=== PATIENT | female | born 1980 | race Caucasian/White ===

== ENCOUNTER 2018-06-15 11:07 | Emergency (ER) | payer BC ==
[~2018-06-15 11:07] MED LIST: ALBU8.5H12 IH; AZIT-1 PO; CODE118S5 PO
[2018-06-15] MEDS ORDERED: HYDR-2966 PO (11:22)
[2018-06-15] MEDS ORDERED: BUS5 PO (11:22)
[2018-06-15] MEDS ORDERED: CETI10CA8 PO (11:22)
--- NOTE | 2018-06-15 11:25 | ER Report ---
History and Physical Time Seen By MD: 11:22 Hx. of Stated Complaint: PATIENT STATES WHEEZING AND COUGHING FOR 3-4 DAYS. RUNNY NOSE. STATES LOW GRADE FEVER AROUND 99.4. WAS AT URGENT CARE THIS MORNING. THEY DID CXR AND FLU SWAB BUT COULD NOT GET A VEIN AND SENTG HER HERE. HPI/ROS CHIEF COMPLAINT: Cough and shortness of breath HISTORY OF PRESENT ILLNESS: This is a 37-year-old female presents to the emergency department for cough and shortness of breath. Patient states that over the last 2 weeks she's had a lingering cough, within the last week symptoms are worsening, within the last 3 days she's had aches and chills, somewhat productive cough, went to urgent care today and had a chest x-ray and negative influenza test. Negative chest x-ray. Placenta the ER for PE studies, they were unable to start an IV and draw blood. She also received 1 nebulizer treatment which did seem to provide some relief of her symptoms. She was also noted to be mid 70s on room air. Denies chest pain, no headaches, no rashes, no nausea, vomiting or diarrhea. REVIEW OF SYSTEMS: Constitutional: As above. Eyes: No discharge. ENT: No sore throat. Cardiovascular: No chest pain, no palpitations. Respiratory: As above. Gastrointestinal: No abdominal pain, no vomiting. Genitourinary: No hematuria. Musculoskeletal: No back pain. Skin: No rashes. Neurological: No headache. Allergies: Coded Allergies: No Known Drug Allergies (Unverified , 06/15/18) Home Meds Active Scripts Rivaroxaban 20 Mg (XARELTO 20 MG) 20 Mg Tablet, 20 MG PO BID for 21 Days, #42 TAB 0 Refills Prov:JIM HERNANDEZ MINE TECHNICIAN- 06/15/18 Reported Medications Cetirizine Hcl (ZYRTEC) 10 Mg Capsule, 10 MG PO QDAY, CAPSULE 06/15/18 Buspirone Hcl (BUSPIRONE HCL) 5 Mg Tab, 5 MG PO BID, #10 TAB 06/15/18 Hydrochlorothiazide (HYDROCHLOROTHIAZIDE) 25 Mg Tablet, 1 TAB PO QDAY, TAB 06/15/18 Past Medical/Surgical History The patient has a past medical and surgical history of borderline diabetic, depression, large body habitus. Reviewed Nurses Notes: Yes Hx Smoking: No Hx Substance Use Disorder: No Constitutional Vital Sign - Last 24 Hours 06/15/18 06/15/18 06/15/18 06/15/18 11:13 11:27 11:30 11:51 Temp 99.1 Pulse 105 94 Resp 22 B/P (MAP) 153/85 132/69 (90) Pulse Ox 92 94 O2 Delivery Nasal Cannula O2 Flow Rate 2.0 06/15/18 06/15/18 06/15/18 06/15/18 11:52 11:52 11:58 12:00 Pulse 93 100 97 Resp 16 16 14 Pulse Ox 95 100 O2 Delivery Nasal Cannula O2 Flow Rate 2.0 06/15/18 06/15/18 06/15/18 12:30 13:00 13:54 Pulse 97 96 80 Resp 11 12 24 B/P (MAP) 105/54 (71) 115/69 (84) Pulse Ox 96 96 85 O2 Delivery Room Air Physical Exam General Appearance: The patient is alert, has no immediate need for airway protection and no signs of toxicity. Eyes: Pupils equal and round no pallor or injection. ENT, Mouth: Mucous membranes are moist. Respiratory: There are no retractions, lungs are clear to auscultation. Cardiovascular: Regular rate and rhythm, no murmurs, clicks or rubs. Gastrointestinal: Abdomen is very round, soft and non tender, no masses, bowel sounds normal. Neurological: Alert and oriented 4. Moving all extremities. Following all commands. No focal neuro deficits. Skin: Warm and dry, no rashes. Musculoskeletal: Neck is supple non tender. Extremities are nontender, nonswollen and have full range of motion. DIFFERENTIAL DIAGNOSIS: After history and physical exam differential diagnosis was considered for shortness of breath including but not limited to pulmonary infectious process, COPD, asthma, pulmonary embolus and congestive heart failure. Medical Decision Making Data Points Result Diagram: 06/15/18 1119 06/15/18 1119 Laboratory Hematology Test 06/15/18 11:19 Red Blood Count 5.23 M/uL (4.17-5.56) Mean Corpuscular Volume 90.1 fL (80.0-96.0) Mean Corpuscular Hemoglobin 29.3 pg (26.0-33.0) Mean Corpuscular Hemoglobin Concent 32.5 g/dL (32.0-36.0) Red Cell Distribution Width 14.3 % (11.5-14.5) Mean Platelet Volume 7.6 fL (7.2-11.1) Neutrophils (%) (Auto) 37.3 % (39.4-72.5) Lymphocytes (%) (Auto) 41.0 % (17.6-49.6) Monocytes (%) (Auto) 20.5 % (4.1-12.4) Eosinophils (%) (Auto) 0.5 % (0.4-6.7) Basophils (%) (Auto) 0.7 % (0.3-1.4) Nucleated RBC Relative Count (auto) 0.0 /100WBC Neutrophils # (Auto) 1.9 K/uL (2.0-7.4) Lymphocytes # (Auto) 2.0 K/uL (1.3-3.6) Monocytes # (Auto) 1.0 K/uL (0.3-1.0) Eosinophils # (Auto) 0.0 K/uL (0.0-0.5) Basophils # (Auto) 0.0 K/uL (0.0-0.1) Nucleated RBC Absolute Count (auto) 0.00 K/uL Peripheral Blood Smear Yes Y/N D-Dimer Quantitative (PE/DVT) 2.99 ug/ml (0-0.50) Sodium Level 140 mmol/L (137-145) Potassium Level 3.6 mmol/L (3.5-5.0) Chloride Level 104 mmol/L (98-107) Carbon Dioxide Level 28 mmol/L (22-31) Blood Urea Nitrogen 11 mg/dl (7-18) Creatinine 0.80 mg/dl (0.52-1.04) Glomerular Filtration Rate Calc > 60.0 Random Glucose 126 mg/dl (75-110) Calcium Level 8.1 mg/dl (8.4-10.2) Total Bilirubin 0.4 mg/dl (0.2-1.3) Aspartate Amino Transf (AST/SGOT) 26 U/L (0-35) Alanine Aminotransferase (ALT/SGPT) 27 U/L (0-56) Alkaline Phosphatase 43 U/L (0-126) Total Protein 7.3 g/dl (6.3-8.2) Albumin 3.9 g/dl (3.5-5.0) Chemistry Test 06/15/18 11:19 White Blood Count 5.0 k/uL (4.5-11.0) Red Blood Count 5.23 M/uL (4.17-5.56) Hemoglobin 15.3 g/dL (12.0-16.0) Hematocrit 47.1 % (34.0-47.0) Mean Corpuscular Volume 90.1 fL (80.0-96.0) Mean Corpuscular Hemoglobin 29.3 pg (26.0-33.0) Mean Corpuscular Hemoglobin Concent 32.5 g/dL (32.0-36.0) Red Cell Distribution Width 14.3 % (11.5-14.5) Platelet Count 154 K/uL (150-450) Mean Platelet Volume 7.6 fL (7.2-11.1) Neutrophils (%) (Auto) 37.3 % (39.4-72.5) Lymphocytes (%) (Auto) 41.0 % (17.6-49.6) Monocytes (%) (Auto) 20.5 % (4.1-12.4) Eosinophils (%) (Auto) 0.5 % (0.4-6.7) Basophils (%) (Auto) 0.7 % (0.3-1.4) Nucleated RBC Relative Count (auto) 0.0 /100WBC Neutrophils # (Auto) 1.9 K/uL (2.0-7.4) Lymphocytes # (Auto) 2.0 K/uL (1.3-3.6) Monocytes # (Auto) 1.0 K/uL (0.3-1.0) Eosinophils # (Auto) 0.0 K/uL (0.0-0.5) Basophils # (Auto) 0.0 K/uL (0.0-0.1) Nucleated RBC Absolute Count (auto) 0.00 K/uL Peripheral Blood Smear Yes Y/N D-Dimer Quantitative (PE/DVT) 2.99 ug/ml (0-0.50) Glomerular Filtration Rate Calc > 60.0 Calcium Level 8.1 mg/dl (8.4-10.2) Total Bilirubin 0.4 mg/dl (0.2-1.3) Aspartate Amino Transf (AST/SGOT) 26 U/L (0-35) Alanine Aminotransferase (ALT/SGPT) 27 U/L (0-56) Alkaline Phosphatase 43 U/L (0-126) Total Protein 7.3 g/dl (6.3-8.2) Albumin 3.9 g/dl (3.5-5.0) Coagulation Test 06/15/18 11:19 D-Dimer Quantitative (PE/DVT) 2.99 ug/ml EKG/Imaging Imaging Location: [facility] [place] Patient: Faith Winter : 1980 Visit/Account:[id number] Date of Sevice: 06/15/2018 EXAMINATION: CTA of the chest with IV contrast HISTORY: Cough. Elevated d-dimer. TECHNIQUE: Pulmonary embolus protocol - Thin axial CT images of the chest were obtained with IV contrast during maximal pulmonary arterial opacification. Reconstruction of the source data includes multiplanar 2D coronal and sagittal reconstructed images, and 3D coronal and sagittal MIP images. Kier Pleater images have been stored on PACS. One of the following dose optimization techniques was utilized in the performance of this exam: Automated exposure control; adjustment of the mA an d/or kV according to the patient's size; or use of an iterative reconstruction technique. Specific details can be referenced in the facility's radiology CT exam operational policy. Contrast: 80 mL of IV Isovue-370. COMPARISON: None. FINDINGS: Technically limited exam due to patient body habitus and associated quantum mottle. Pulmonary arteries: Despite the technical limitations of the exam, the exam is positive for pulmonary embolism. There is a filling defect present in the distal right main pulmonary artery extending into segmental branches in the upper, middle, and lower lobes. Additional likely small filling defects present within several segmental pulmonary artery branches in the left lower lobe and lingula. Heart, aorta, and great vessels: Normal caliber thoracic aorta. Normal heart size. No pericardial effusion. Lungs and pleura: The lungs are clear. No focal consolidation or evidence of pulmonary infarct. No pleural effusion. The central airways are patent. Mediastinum and nico: Negative. Visualized upper abdomen: Unremarkable. Chest wall: Negative. Bones: Negative. IMPRESSION: 1. Positive exam for pulmonary embolism. Moderate clot burden predominantly involving the right lung. 2. The lungs are clear. No evidence of pulmonary infarct. No pleural effusion. Findings were discussed with JMI HERNANDEZ at 06/15/2018 1:14 PM. Report Dictated By: Neftali Huddleston MD at 06/15/2018 1:07 PM Report E-Signed By: Neftali Huddleston MD at 06/15/2018 1:16 PM [id number] ED Course/Re-evaluation Clinical Indication for ER IV: Hydration, IV Access ED Course The patient was admitted to room. A history and physical obtained. Differential diagnoses were considered. An IV was started. A CBC, CMP, d-dimer obtained. CBC unremarkable, chemistry unremarkable, d-dimer 2.99. I did review the results with the patient, I did tell her that a CTA was indicated with her symptoms and an elevated d-dimer, CTA showing bilateral pulmonary emboli with moderate burden. I reviewed the results with the patient, we discussed various anticoagulation therapies at length, pros and cons to all of them, she elected to proceed with Xarelto, a prescription was sent to the patient's pharmacy. She was also instructed to follow-up with her primary care provider next week for reevaluation, I also started her on continuous oxygen for the next 30 days. Patient had no other questions or concerns at the time of discharge. She was in agreement with this plan of care. Decision to Disposition Date: Jun 15, 2018 Decision to Disposition Time: 13:43 Depart Departure Latest Vital Signs Vital Signs Date Time Temp Pulse Resp B/P (MAP) Pulse Ox O2 Delivery O2 Flow Rate FiO2 06/15/18 13:54 80 24 85 Room Air 06/15/18 13:00 115/69 (84) 06/15/18 11:52 2.0 06/15/18 11:13 99.1 Impression: Primary Impression: Pulmonary emboli Condition: Improved Disposition: HOME OR SELF-CARE New Scripts Rivaroxaban 20 Mg (XARELTO 20 MG) 20 Mg Tablet 20 MG PO BID for 21 Days, #42 TAB 0 Refills Prov: DAVIDJIM Cari MINE TECHNICIAN-BC 06/15/18 Patient Instructions: Pulmonary Embolism (DC) Additional Instructions: As we have discussed, you do have clots in your lungs, we will start you on Xarelto which isn't anticoagulation medication, this will increase the chance for bleeding be very cautious, a few fall and hit her head please come into the emergency department for an evaluation, if you cut herself please apply pressure for an extended period of time. You will take 15 mg twice a day for 21 days, then your primary care provider will start you on 20 mg one today likely for 6 months. Please use the home oxygen 24 hours a day for the next 7 days. You may need oxygen for up to one month. Please follow-up with your primary care provider next week for reevaluation. Drink plenty of water. Get plenty of rest. Return to the ER for any other concerns or worsening symptoms. Problem Qualifiers Primary Impression: Pulmonary emboli Pulmonary embolism type: unspecified Chronicity: acute Acute cor pulmonale presence: without acute cor pulmonale Qualified Codes: I26.99 - Other pulmonary embolism without acute cor pulmonale JIM HERNANDEZ MINE TECHNICIAN-BC Jun 15, 2018 11:25
[2018-06-15] MEDS ORDERED: NS(*) 0.9% 1000 ML BAG 1,000 ML IV ONE (11:35)
[2018-06-15] MEDS ORDERED: ALBUTEROL/IPRATROPIUM 3 ML NEB NEB ONE (11:35)
[2018-06-15 11:48] LABS: PLATELET COUNT, AUTOMATED 154 K/uL (150-450)
[2018-06-15] MEDS ORDERED: IOPAMIDOL 76% 150 ML INFUS BTL 150 ML ONE (12:37)
[2018-06-15] MEDS ORDERED: NS(*) 0.9% 50 ML BAG 50 ML ONE (12:37)
[2018-06-15 13:00] VITALS: BP 115/69
--- NOTE | 2018-06-15 13:20 | RADIOLOGY IMAGING REPORT ---
FACILITY: [facility] PATIENT NAME: Faith Winter : 1980 MR: [id number] V: [id number] EXAM DATE: ORDERING PHYSICIAN: JIM HERNANDEZ TECHNOLOGIST: Location: [facility] Patient: Faith Winter : 1980 Visit/Account:[id number] Date of Sevice: 06/15/2018 EXAMINATION: CTA of the chest with IV contrast HISTORY: Cough. Elevated d-dimer. TECHNIQUE: Pulmonary embolus protocol - Thin axial CT images of the chest were obtained with IV con trast during maximal pulmonary arterial opacification. Reconstruction of the source data includes mul tiplanar 2D coronal and sagittal reconstructed images, and 3D coronal and sagittal MIP images. Repres entative images have been stored on PACS. One of the following dose optimization techniques was utilized in the performance of this exam: Autom ated exposure control; adjustment of the mA and/or kV according to the patient's size; or use of an i terative reconstruction technique. Specific details can be referenced in the facility's radiology C T exam operational policy. Contrast: 80 mL of IV Isovue-370. COMPARISON: None. FINDINGS: Technically limited exam due to patient body habitus and associated quantum mottle. Pulmonary arteries: Despite the technical limitations of the exam, the exam is positive for pulmonar y embolism. There is a filling defect present in the distal right main pulmonary artery extending in to segmental branches in the upper, middle, and lower lobes. Additional likely small filling defects present within several segmental pulmonary artery branches in the left lower lobe and lingula. Heart, aorta, and great vessels: Normal caliber thoracic aorta. Normal heart size. No pericardial effusion. Lungs and pleura: The lungs are clear. No focal consolidation or evidence of pulmonary infarct. No pleural effusion. The central airways are patent. Mediastinum and nico: Negative. Visualized upper abdomen: Unremarkable. Chest wall: Negative. Bones: Negative. IMPRESSION: 1. Positive exam for pulmonary embolism. Moderate clot burden predominantly involving the right marlene g. 2. The lungs are clear. No evidence of pulmonary infarct. No pleural effusion. Findings were discussed with JIM HERNANDEZ at 06/15/2018 1:14 PM. Report Dictated By: Neftali Huddleston MD at 06/15/2018 1:07 PM Report E-Signed By: Neftali Huddleston MD at 06/15/2018 1:16 PM WSN:[id number]
[2018-06-15] MEDS ORDERED: RIVA20TA PO (13:30)
[2018-06-15] MEDS ORDERED: RIVAROXABAN 10 MG TAB PO ONE (13:35)
== END 2018-06-15 15:00 | disposition home or self-care (01) ==
LOC: ER 11:10
DX: I26.99 Other pulmonary embolism without acute cor pulmonale (principal)
CPT/HCPCS: 71275; 85025; 85379; 94640; 96360; 96361; 99284; J7030; J7050; J7620; Q9967; 82040; 82247; 82310; 82374; 82435; 82565; 82947; 84075; 84132; 84155; 84295; 84450; 84460; 84520